=== PATIENT | male | born 1965 | race Caucasian/White ===

== ENCOUNTER 2024-08-11 18:08 | Emergency (ER) | payer BC, SELFPAY ==
[2024-08-11 18:21] VITALS: BP 169/92
[2024-08-11 19:17] VITALS: BMI 33.5
--- NOTE | 2024-08-11 21:15 | ED.GENMED ---
History of Present Illness
General
Chief Complaint: Skin Problem
Source: patient
Time Seen by Provider: 08/11/24 20:51
History of Present Illness
History of Present Illness:
59-year-old male presenting to the emergency department for evaluation after he noticed a tick on his scrotum earlier this evening, he attempted to remove the tick however states he is unsure if he got the entirety of the tick out of the scrotal
skin. Patient denies any other symptoms. He notes he does not believe to have any other ticks on his person.
Past History
Past History
ED Past Medical History: None
ED Past Surgical History: Appendectomy, Orthopedic and Other
Social History
Tobacco: Non-smoker
Alcohol: None
Drug: None
Personal:
Living: with family
Review of Systems
Review of Systems
All Other Systems: ROS reviewed and negative except as documented in HPI and ROS
Phy Exam
Physical Exam
Physical Exam:
GENERAL: Alert , in no apparent distress
EYE: conjunctiva clear
Head: Normocephalic atraumatic
NECK: Supple,
ENT: mmm.
LUNGS: no acute respiratory distress
NEUROLOGICAL: Alert and oriented
SKIN: Warm and dry, skin intact. Small bite nereyda/opening as to where the patient was trying to remove contact without any remnants of the tick head or body noted
MUSCULOSKELETAL: well perfused.
PSYCH: Normal and appropriate interaction.
Scores
Heart Failure Risk
Heart Failure Risk Score: Not Applicable
Heart Score for Chest Pain Patients
STEMI patient?: Not applicable
Withdrawal Assessment of Alcohol
Withdrawal Assessment Completed?: Not applicable
Course
Orders/Labs/Results
Orders:
Orders
08/11/24 21:15
Doxycycline [Vibramycin] 200 mg PO NOW STA
Vital Signs
Initial and Last Documented VS:
Initial Vital Signs
Temp Pulse Resp BP Pulse Ox
97.7 F 86 17 169/92 98
08/11/24 18:21 08/11/24 18:21 08/11/24 18:21 08/11/24 18:21 08/11/24 18:21
Last Documented Vital Signs
Temp Pulse Resp BP Pulse Ox
97.7 F 86 17 169/92 98
08/11/24 18:21 08/11/24 18:21 08/11/24 18:21 08/11/24 18:21 08/11/24 18:21
MDM/Problems Addressed
MDM/Problems Addressed:
59-year-old male presenting to the emergency department for evaluation after he believes there could be a tick embedded within his scrotum. The area where the tick had been located was noted to not have any remnants of the tick located. I do
believe it is most likely that patient was able to remove most of the tick on his own. He does note that he had been gardening all weekend and was possible the tick had been present for 48 hours or more. Will treat with a one-time 200 mg dose of
doxycycline. Encouraged patient to follow-up with primary care provider.
*Pulse Oximetry
Patient hypoxic: no
*Critical Care Note
Total Time (30-74mins, 75-104mins- exclusive of procedures): Not Applicable
ED Attending Note
-
Portions of this chart may have been created with voice recognition software.� Occasional wrong word or��sound alike� substitutions may have occurred due to the inherent limitations of voice recognition software.
Discharge Plan
Departure
Patient Disposition: Home (Routine Discharge)
Date of Disposition: 08/11/24
Time of Disposition: 21:15
Patient with high blood pressure during this ER visit?: Yes
Discharge Problem:
Tick bite of scrotum
Instructions: Insect bites and stings - ED discharge instructions
Prescriptions:
No Action
cephalexin 500 MG capsule
500 mg PO QID Qty: 40 0RF
hydrocodone-acetaminophen 5 MG/500 MG tablet
1 tab PO Q4HPRN PRN (Reason: pain) Qty: 12 0RF
Referrals:
Rocky Varela MD [Family Provider] -
Interventions
Interventions:
*Risk Screen - Suicide Last Done: 08/11/24 18:23
*General Assessment Last Done: 08/11/24 18:23
*Neglect/Abuse Screening Last Done: 08/11/24 18:23
*ED COVID-19 Vaccine History Last Done: 08/11/24 18:23
*Nursing Disposition Last Done: 08/11/24 21:27
ED-Skin Assessment Last Done: 08/11/24 21:27
Discharge Date and Time
Print Language: [id number]
[2024-08-11] MEDS: VIBRAMYCIN 200 MG PO (21:26)
== END 2024-08-11 21:28 | disposition home or self-care (01) ==
LOC: EMR 18:08
PROVIDERS: EMERGENCY PHYSICIAN Emergency Medicine; FAMILY PHYSICIAN Family Medicine
DX: S30.863A Insect bite (nonvenomous) of scrotum and testes, initial encounter (principal); W57.XXXA Bitten or stung by nonvenomous insect and other nonvenomous arthropods, initial encounter
CPT/HCPCS: 99283